=== PATIENT | male | born 1990 | race Caucasian/White ===

== ENCOUNTER 2021-07-07 11:00 | Emergency (ER) | payer OTHER ==
[2021-07-07] MEDS ORDERED: NORFLEX 100 MG100 MG PO (14:30)
[2021-07-07] MEDS ORDERED: IBUPROFEN600 MG PO (14:30)
== END 2021-07-07 15:05 | disposition home or self-care (01) ==
LOC: ER1 11:00
DX: S16.1XXA Strain of muscle, fascia and tendon at neck level, initial encounter (principal); S40.012A Contusion of left shoulder, initial encounter; S20.212A Contusion of left front wall of thorax, initial encounter; Z88.2 Allergy status to sulfonamides; V49.40XA Driver injured in collision with unspecified motor vehicles in traffic accident, initial encounter; Y92.410 Unspecified street and highway as the place of occurrence of the external cause
CPT/HCPCS: 71046; 72125; 73030; 96374; 99284; J1885

== ENCOUNTER → 2021-07-17 | Outpatient (CLI) | payer OTHER ==
[~2021-07-17] MED LIST: IBUPROFEN600 MG PO; NORFLEX 100 MG100 MG PO
== END ==
LOC: KOH-I 07-15 08:00
DX: M25.512 Pain in left shoulder (principal); M54.2 Cervicalgia
CPT/HCPCS: 72141; 73200

== ENCOUNTER → 2021-07-24 | Outpatient (CLI) | payer OTHER | LOC: KOH-I 07-22 08:30 | DX: M25.512 Pain in left shoulder (principal) | CPT/HCPCS: 73221 ==